=== PATIENT | female | born 1990 | race Caucasian/White ===

== ENCOUNTER 2021-02-08 03:26 | Emergency (ER) | payer OTHER ==
[2021-02-08] MEDS ORDERED: LACTATED RINGERS SOLUTION 1000 ML INFUS.BAG IV ONE (04:17)
[2021-02-08] MEDS ORDERED: DEXAMETHASONE SOD PHOSPHATE 10 MG/1 ML VIAL IVPUSH ONE (04:19)
[2021-02-08 04:45] VITALS: TEMP 98.8; BMI 24.8
[2021-02-08 05:49] VITALS: BP 114/69; PULSE 78
== END 2021-02-08 06:03 | disposition home or self-care (01) ==
LOC: JER 03:26
PROC: 3E033GC Introduction of Other Therapeutic Substance into Peripheral Vein, Percutaneous Approach (ICD-10-PCS; principal; 2021-02-08)
DX: T78.40XA Allergy, unspecified, initial encounter (principal)
CPT/HCPCS: 99284-25; J1100

== ENCOUNTER 2024-01-14 09:06 | Emergency (ER) | payer OTHER ==
[2024-01-14 09:14] VITALS: BP 123/80; PULSE 75; RESP 18; TEMP 97.6; BMI 26.6
[2024-01-14] MEDS ORDERED: KETOROLAC TROMETHAMINE 30 MG/1 ML VIAL ONE (10:27)
[2024-01-14] MEDS ORDERED: LIDOCAINE 4% PATCH TP ONE (10:27)
[2024-01-14] MEDS ORDERED: METHOCARBAMOL 500 MG TABLET ONE (10:27)
[2024-01-14] MEDS: KETOROLAC TROMETHAMINE 30 MG/1 ML VIAL IM ONE (10:40)
[2024-01-14] MEDS: LIDOCAINE 4% PATCH TP ONE (10:40)
[2024-01-14] MEDS: METHOCARBAMOL 500 MG TABLET PO ONE (10:45)
[2024-01-14] MEDS ORDERED: LIDOCAINE PATCH REMOVAL MC SCH (22:00)
== END 2024-01-14 10:55 | disposition home or self-care (01) ==
LOC: JER 09:06
PROC: 3E0133Z Introduction of Anti-inflammatory into Subcutaneous Tissue, Percutaneous Approach (ICD-10-PCS; principal; 2024-01-14)
DX: M54.2 Cervicalgia (principal); M25.511 Pain in right shoulder; M25.512 Pain in left shoulder; M54.6 Pain in thoracic spine; R07.89 Other chest pain; Y04.0XXA Assault by unarmed brawl or fight, initial encounter
CPT/HCPCS: 71046-TC-FY; 93005; 93010; 99284-25